=== PATIENT | male | born 1970 | race African-American/Black ===

== ENCOUNTER 2016-09-20 10:37 | Emergency (ER) | payer BC ==
[~2016-09-20] VITALS: Ht 182.9 cm; Wt 87.1 kg
[2016-09-20 10:42] VITALS: BP 145/82
--- NOTE | 2016-09-20 11:27 | PHYS DOC ---
Past Medical History Past Medical History: No Pertinent History Past Surgical History: Other Additional Past Surgical Histo: RIGHT GREAT TOE SX Alcohol Use: Occasionally Drug Use: None Adult General Chief Complaint Chief Complaint: HIP PAIN HPI HPI This is a pleasant 46-year-old male otherwise healthy with no major medical problems prior major surgeries began having twinges of back pain last night at midnight. Patient was walking around his house when he had a sudden onset of pain rating from his left lower back to his left gluteal region and into his left leg. He denies any numbness, tingling, weakness in his lower extremities just pain with exacerbation when walking. Patient denies any bowel or bladder incontinence, night sweats, fevers, intravenous drug use, or direct trauma. Patient also denies any abdominal pain, nausea, UTI symptoms or hematuria. Patient denies any prior history of the same. He took some Motrin at home which did not help with symptoms. EMS was dispatched to the facility to pick him up secondary to pain being so severe he had to walk. In the EMS ride he was given some IM pain medications which did improve his symptoms are unremarkable. Pain is worse with range of motion and direct pressure over the hip and back. Review of Systems Review of Systems Constitutional: Denies fever or chills [] Eyes: Denies change in visual acuity, redness, or eye pain [] HENT: Denies nasal congestion or sore throat [] Respiratory: Denies cough or shortness of breath [] Cardiovascular: No additional information not addressed in HPI [] GI: Denies abdominal pain, nausea, vomiting, bloody stools or diarrhea [] : Denies dysuria or hematuria [] Musculoskeletal: He does complain of back pain. Integument: Denies rash or skin lesions [] Neurologic: Denies headache, focal weakness or sensory changes [] Endocrine: Denies polyuria or polydipsia [] Current Medications Current Medications Current Medications Medications (Trade) Dose Ordered Sig/Jessie Start Time Stop Time Status Last Admin Dose Admin Diazepam (Valium) 5 mg 1X ONCE 09/20/16 11:30 09/20/16 11:31 DC 09/20/16 11:42 5 MG Hydromorphone HCl (Dilaudid) 1 mg 1X ONCE 09/20/16 11:30 09/20/16 11:31 DC 09/20/16 11:44 1 MG Ketorolac Tromethamine (Toradol Im) 60 mg 1X ONCE 09/20/16 11:30 09/20/16 11:31 DC 09/20/16 11:39 60 MG Allergies Allergies Allergies Coded Allergies Type Severity Reaction Last Updated Verified amoxicillin Allergy Intermediate Rash 09/20/16 Yes Physical Exam Physical Exam Constitutional: Well developed, well nourished, no acute distress, non-toxic appearance. [] Neck: Normal range of motion, no tenderness, supple, no stridor. [] Cardiovascular:Heart rate regular rhythm, no murmur [] Lungs & Thorax: Bilateral breath sounds clear to auscultation [] Skin: Warm, dry, no erythema, no rash. [] Back: Patient had marked tenderness to palpation of the erector spinae muscle sprain the lumbar spine. There is minimal if anything midline. He does have reproducible pain along the piriformis and the gluteus cindy and minimus. There is no obvious soft tissue swelling or erythema. This pain does radiate to the lateral aspect of the thigh. Extremities: No tenderness, no cyanosis, no clubbing, ROM intact, no edema. [] Neurologic: Alert and oriented X 3, normal motor function, normal sensory function, no focal deficits noted. He is able to dorsiflex and plantar flex at the ankle and foot without issue no weakness. Patient able to extend and flex at the knee without issue. Agents pain is worsened by range of motion at the left hip. Psychologic: Affect normal, judgement normal, mood normal. [] Current Patient Data Vital Signs Vital Signs Date Time Temp Pulse Resp B/P (MAP) Pulse Ox O2 Delivery O2 Flow Rate FiO2 09/20/16 11:44 20 98 Room Air 09/20/16 10:42 98.2 68 98.2 EKG EKG [] Radiology/Procedures Radiology/Procedures [] IMAGING REPORT Signed PATIENT: ISAURA BARNETT ACCOUNT: [id number] : 1970 LOCATION: ER AGE: 46 SEX: M EXAM STATUS: REG ER ORD. PHYSICIAN: CINTHYA PARSONS MD REASON: lower back pain sudden onset PROCEDURE: CT LUMBAR SPINE WO CONTRAST Indication lower back pain this morning. No known injury. Axial images through the lumbar spine were obtained and reformatted in the coronal and sagittal planes. No prior imaging of the lumbar spine is available. The lung bases are clear. The visualized soft tissues in the abdomen and pelvis appear unremarkable. No acute bony finding is apparent. Vertebral height alignment and disc spaces are unremarkable. The visualized lower thoracic spine appears unremarkable. T12-L1 appears normal. L1-2 and L2-3 appear unremarkable. No spinal stenosis or significant foraminal encroachment is seen at either level. At L3-4 there is some left neural foraminal encroachment. Correlation with physical examination findings advised. A foraminal disc is not excluded. At L4-5 there is disc bulging. The canal is mildly to moderately narrowed at this level to approximately 8 mm. There is no significant foraminal encroachment. L5-S1 appears unremarkable IMPRESSION: No acute finding. Mild left foraminal narrowing at L3-4. Disc bulging with mild spinal stenosis at L4 PQRS Compliance Statement: One or more of the following individualized dose reduction techniques were utilized for this examination: 1. Automated exposure control 2. Adjustment of the mA and/or kV according to patient size 3. Use of iterative reconstruction technique Course & Med Decision Making Course & Med Decision Making Pertinent Labs and Imaging studies reviewed. (See chart for details) ration presents with minimally traumatic nontraumatic hip and back pain. His presentation is very reminiscent of possible sciatica. He has no red flags like night sweats, focal neurologic tests, bowel or bladder incontinence, he is young and healthy with no history of cancer. I will complete a lumbar spine series once this patient is more comfortable after IM pain medications are given. []Patient tells me that their symptoms given during CC are improved. Time is now 12:[address] lumbar spine demonstrates only mild bulging disks without impingement or spinal called. Patient denied discussed case and findings on CT scan. Time is now 1:20 PM patient feels markedly better although he still had some soreness in his lower back. My plan to treat him with [id number] Motrin and a muscle relaxant as well as some of her breakthrough pain for next 2 days until urine mai arranged with his primary care doctor to arrange physical therapy. Differential diagnosis includes cauda equina, renal disease or renal stones, abdominal aneurysm, tumors or trauma in the spinal column, fractures of the spinal column include compression fracture, infection like epidural abscess UTI or pyelonephritis. This point patient's history and physical exam findings do not represent any of the following differential diagnoses. His normal neuro exam and easily reproducible pain on exam. I believe this is musculoskeletal likely sciatica and muscular skeletal pain. Dragon Disclaimer Dragon Disclaimer This electronic medical record was generated, in whole or in part, using a voice recognition dictation system. Departure Departure Impression: Primary Impression: Sciatica Additional Impression: Lower back pain Disposition: HOME, SELF-CARE Condition: IMPROVED Patient Instructions: Back Pain, Adult, Sciatica with Rehab-SportsMed Additional Instructions: We do please return if you have any increasing numbness to the rectum or groin. Please return for any bowel or bladder incontinence. Follow-up with her primary care doctor for referral to physical therapy as needed for symptomatic treatment. Please return for any question concerns or might have. Scripts Diazepam (VALIUM) 5 Mg Tablet 5 MG PO TID for MUSCLE SPASMS for 5 Days, #15 TAB Prov: CINTHYA PARSONS MD 09/20/16 Naproxen (NAPROSYN) 500 Mg Tablet 1 TAB PO BID, #14 TAB 1 Refill Prov: CINTHYA PARSONS MD 09/20/16 Hydrocodone Bit/Acetaminophen (HYDROCODONE-APAP 5-325 ) 1 Each Tablet 1-2 TAB PO PRN Q6HRS Y for PAIN for 5 Days, #10 TAB 0 Refills Prov: CINTHYA PARSONS MD 09/20/16 Problem Qualifiers CINTHYA PARSONS MD Sep 20, 2016 11:27
[2016-09-20] MEDS ORDERED: HYDROmorphone 2 MG/ML VIAL IM ONE ×2 (11:30→13:45)
[2016-09-20] MEDS ORDERED: KETOROLAC TROMETHAMINE 60 MG/2 ML INJ. IM ONE (11:30)
--- NOTE | 2016-09-20 12:34 | RAD ---
Indication lower back pain this morning. No known injury. Axial images through the lumbar spine were obtained and reformatted in the coronal and sagittal planes. No prior imaging of the lumbar spine is available. The lung bases are clear. The visualized soft tissues in the abdomen and pelvis appear unremarkable. No acute bony finding is apparent. Vertebral height alignment and disc spaces are unremarkable. The visualized lower thoracic spine appears unremarkable. T12-L1 appears normal. L1-2 and L2-3 appear unremarkable. No spinal stenosis or significant foraminal encroachment is seen at either level. At L3-4 there is some left neural foraminal encroachment. Correlation with physical examination findings advised. A foraminal disc is not excluded. At L4-5 there is disc bulging. The canal is mildly to moderately narrowed at this level to approximately 8 mm. There is no significant foraminal encroachment. L5-S1 appears unremarkable IMPRESSION: No acute finding. Mild left foraminal narrowing at L3-4. Disc bulging with mild spinal stenosis at L4 PQRS Compliance Statement: One or more of the following individualized dose reduction techniques were utilized for this examination: 1. Automated exposure control 2. Adjustment of the mA and/or kV according to patient size 3. Use of iterative reconstruction technique
[2016-09-20] MEDS ORDERED: DIAZ5TAB PO (13:30)
[2016-09-20] MEDS ORDERED: HYDR-2758 PO (13:30)
[2016-09-20] MEDS ORDERED: NAPR500T PO (13:30)
[2016-09-21] MEDS ORDERED: NAPR500T8 PO (22:39)
[2016-09-21] MEDS ORDERED: DIAZ5TAB PO (22:39)
[2016-09-21] MEDS ORDERED: HYDR-971 PO (22:39)
== END 2016-09-20 14:07 | disposition home or self-care (01) ==
LOC: ER 10:37
DX: M54.42 Lumbago with sciatica, left side (principal); Z88.1 Allergy status to other antibiotic agents
CPT/HCPCS: 72131; 96372; 99284; J1170; J1885; J3360

== ENCOUNTER 2016-09-21 20:15 | Emergency (ER) | payer BC ==
[~2016-09-21] VITALS: Ht 180.3 cm; Wt 90.7 kg
[~2016-09-21 20:15] MED LIST: DIAZ5TAB PO; HYDR-2758 PO; NAPR500T PO
[2016-09-21 20:30] VITALS: BP 145/82
[2016-09-21] MEDS ORDERED: HYDROmorphone 2 MG/ML VIAL IM ONE (20:45)
[2016-09-21] MEDS ORDERED: KETOROLAC TROMETHAMINE 60 MG/2 ML INJ. IM ONE (20:45)
[2016-09-21] MEDS ORDERED: DEXAMETHASONE SOD PHOS 20 MG/5 ML VIAL. IM ONE (20:45)
--- NOTE | 2016-09-21 20:57 | PHYS DOC ---
Past Medical History Past Medical History: No Pertinent History Past Surgical History: Other Additional Past Surgical Histo: RIGHT GREAT TOE SX Alcohol Use: Occasionally Drug Use: None Adult General Chief Complaint Chief Complaint: HIP PAIN HPI HPI Patient is a 46 year old male who presents with moderate left hip pain radiating to the left lower extremity that began yesterday. Patient state he was seen yesterday in the emergency room after falling. He states they did a CT of his lumbar spine which was negative. Patient states he has continued to have pain radiating from the left hip into the left lower extremity worse on ambulation. Patient states he was seen by the PCP today and they sent him back to the ED to have x-rays of the hip done to make sure he does not have any infection or any other source for the pain. Patient denies any loss of bowel/ bladder function. Denies any numbness or tingling to bilateral lower extremities. Review of Systems Review of Systems Constitutional: Denies fever or chills [] Eyes: Denies change in visual acuity, redness, or eye pain [] HENT: Denies nasal congestion or sore throat [] Respiratory: Denies cough or shortness of breath [] Cardiovascular: No additional information not addressed in HPI [] GI: Denies abdominal pain, nausea, vomiting, bloody stools or diarrhea [] : Denies dysuria or hematuria [] Musculoskeletal: Left hip pain radiating to the left lower extremity. Integument: Denies rash or skin lesions [] Neurologic: Denies headache, focal weakness or sensory changes [] Endocrine: Denies polyuria or polydipsia [] Current Medications Current Medications Current Medications Medications (Trade) Dose Ordered Sig/[facility] Start Time Stop Time Status Last Admin Dose Admin Dexamethasone Sodium Phosphate (Decadron) 10 mg 1X ONCE 09/21/16 20:45 09/21/16 20:46 DC 09/21/16 20:53 10 MG Hydromorphone HCl (Dilaudid) 1 mg 1X ONCE 09/21/16 20:45 09/21/16 20:46 DC 09/21/16 20:53 1 MG Ketorolac Tromethamine (Toradol Im) 60 mg 1X ONCE 09/21/16 20:45 09/21/16 20:46 DC 09/21/16 20:53 60 MG Allergies Allergies Allergies Coded Allergies Type Severity Reaction Last Updated Verified amoxicillin Allergy Intermediate Rash 09/20/16 Yes Physical Exam Physical Exam Constitutional: Well developed, well nourished, no acute distress, non-toxic appearance. [] HENT: Normocephalic, atraumatic, bilateral external ears normal, oropharynx moist, no oral exudates, nose normal. [] Eyes: PERRLA, EOMI, conjunctiva normal, no discharge. [] Neck: Normal range of motion, no tenderness, supple, no stridor. [] Cardiovascular:Heart rate regular rhythm, no murmur [] Lungs & Thorax: Bilateral breath sounds clear to auscultation [] Abdomen: Bowel sounds normal, soft, no tenderness, no masses, no pulsatile masses. [] Skin: Warm, dry, no erythema, no rash. [] Back: No tenderness, no CVA tenderness. [] Extremities: Left hip with no obvious deformity. Tenderness on palpation of the left lateral hip joint as well as left anterior hip joint. Pain elicited on internal and external rotation of the left hip, as well as flexion and extension of the left lower extremity. Positive left leg straight raises. +2 left pedal pulse. Cap refill less than 2 seconds the left lower extremity. Sensation intact to the left lower extremity. Neurologic: Alert and oriented X 3, normal motor function, normal sensory function, no focal deficits noted. [] Psychologic: Affect normal, judgement normal, mood normal. [] Current Patient Data Vital Signs Vital Signs Date Time Temp Pulse Resp B/P (MAP) Pulse Ox O2 Delivery O2 Flow Rate FiO2 09/21/16 20:30 97.7 61 19 145/82 (103) 98 Room Air 97.7 Lab Values Laboratory Tests Test 09/21/16 21:10 White Blood Count 6.9 x10^3/uL (4.0-11.0) Red Blood Count 4.81 x10^6/uL (4.30-5.70) Hemoglobin 13.3 g/dL (13.0-17.5) Hematocrit 40.7 % (39.0-53.0) Mean Corpuscular Volume 85 fL (79-100) Mean Corpuscular Hemoglobin 28 pg (25-35) Mean Corpuscular Hemoglobin Concent 33 g/dL (31-37) Red Cell Distribution Width 14.0 % (11.5-14.5) Platelet Count 194 x10^3/uL (140-400) Neutrophils (%) (Auto) 58 % (31-73) Lymphocytes (%) (Auto) 32 % (24-48) Monocytes (%) (Auto) 6 % (0-9) Eosinophils (%) (Auto) 3 % (0-3) Basophils (%) (Auto) 1 % (0-3) Neutrophils # (Auto) 4.0 x10^3uL (1.8-7.7) Lymphocytes # (Auto) 2.2 x10^3/uL (1.0-4.8) Monocytes # (Auto) 0.4 x10^3/uL (0.0-1.1) Eosinophils # (Auto) 0.2 x10^3/uL (0.0-0.7) Basophils # (Auto) 0.1 x10^3/uL (0.0-0.2) Erythrocyte Sedimentation Rate 1 (0-15) C-Reactive Protein, Quantitative 0.9 mg/L (0-3.3) Laboratory Tests 09/21/16 21:10 EKG EKG [] Radiology/Procedures Radiology/Procedures [] Course & Med Decision Making Course & Med Decision Making Pertinent Labs and Imaging studies reviewed. (See chart for details) Patient is in the ED with left hip pain radiating into the left lower extremity. He was seen in the ED yesterday for low back pain and diagnosed with sciatica after falling. He did have a CT of the lumbar spine which was negative for any acute findings. He states his PCP sent him to the ED to be evaluated for the left hip pain with the concern being septic joint. Patient is afebrile. CBC with no acute findings. Left hip x-rays including pelvic interpreted by Dr. Arita were negative for any acute findings. CBC was normal, CRP and sedimentation rate were normal. We have ruled out septic joint. Patient be discharged with instructions to follow-up with his own doctor. He states he is almost out of pain medicine. Gave him a prescription for pain medicines and muscle relaxer. He has an appointment with his own doctor on . Dragon Disclaimer Dragon Disclaimer This electronic medical record was generated, in whole or in part, using a voice recognition dictation system. Departure Departure Impression: Primary Impression: Sciatic leg pain Additional Impression: Left hip pain Disposition: HOME, SELF-CARE Condition: STABLE Referrals: MICHAEL CHOW MD (PCP) Follow-up with your doctor on as scheduled Patient Instructions: Hip Pain, Sciatica, [id number] Additional Instructions: You were seen for ongoing left hip pain radiating to the left lower extremity. We did a left hip and pelvic x-rays which were normal. We have done a CBC CRP and sedimentation rate which are normal. You stated you have a follow-up appointment with your primary care doctor on . Ensure you follow-up. Scripts Naproxen (NAPROXEN) 500 Mg Tablet.dr 1 TAB PO BID, #60 TAB 2 Refills Prov: FARIDEH HAMMOND APRN 09/21/16 Diazepam (VALIUM) 5 Mg Tablet 5 MG PO TID, #15 TAB Prov: FARIDEH HAMMOND APRN 09/21/16 Hydrocodone/Apap 5-325 (NORCO 5-325 TABLET) 1 Each Tablet 1-2 TAB PO Q4-6HRS, #14 TAB Prov: FARIDEH HAMMOND APRN 09/21/16 Problem Qualifiers FARIDEH HAMMOND APRN Sep 21, 2016 20:57
[2016-09-21 21:23] LABS: BASO # 0.1 x10^3/uL (0.0-0.2); BASO % 1 % (0-3); EOS % 3 % (0-3); HEMATOCRIT 40.7 % (39.0-53.0); HEMOGLOBIN 13.3 g/dL (13.0-17.5); LYMPH # 2.2 x10^3/uL (1.0-4.8); LYMPH % 32 % (24-48); MEAN CORPUSCULAR HEMOGLOBIN 28 pg (25-35); MEAN CORPUSCULAR HGB CONC 33 g/dL (31-37); MEAN CORPUSCULAR VOLUME 85 fL (79-100); MONO % 6 % (0-9); NEUT % 58 % (31-73); PLATELET COUNT 194 x10^3/uL (140-400); RED BLOOD COUNT 4.81 x10^6/uL (4.30-5.70); WHITE BLOOD COUNT 6.9 x10^3/uL (4.0-11.0)
[2016-09-21 22:32] LABS: BARBITURATES NEG (NEG); BENZODIAZEPINES POS (NEG); CANNABINOIDS NEG (NEG); COCAINE NEG (NEG); METHADONE NEG (NEG); OPIATES POS (NEG); PHENCYCLIDINE NEG (NEG)
[2016-09-21] MEDS ORDERED: DIAZ5TAB PO (22:39)
[2016-09-21] MEDS ORDERED: HYDR-971 PO (22:39)
[2016-09-21] MEDS ORDERED: NAPR500T8 PO (22:39)
--- NOTE | 2016-09-22 07:36 | RAD ---
Indication left hip pain. No history of injury. An AP view of the pelvis was obtained as well as targeted AP and frog leg views of the left hip. No bony abnormality is seen
== END 2016-09-21 22:49 | disposition home or self-care (01) ==
LOC: ER 20:15
DX: M54.32 Sciatica, left side (principal); M79.605 Pain in left leg; M25.552 Pain in left hip; Z88.1 Allergy status to other antibiotic agents
CPT/HCPCS: 36415; 73502; 80305; 80320; 85027; 85651; 86140; 96372; 99285; J1100; J1170; J1885; G0481